=== PATIENT | male | born 1975 | race Caucasian/White ===

== ENCOUNTER 2017-01-27 17:52 | Emergency (ER) | payer MEDICAID ==
[~2017-01-27] VITALS: Ht 177.8 cm; Wt 72.8 kg
[2017-01-27 18:06] VITALS: BP 112/71
[2017-01-27] MEDS ORDERED: LIDOCAINE 1%, 20ML SQ ONE (18:30)
[2017-01-27] MEDS ORDERED: SODIUM CHLORIDE 0.9% 1,000ML IVBOLUS ONE (19:00)
[2017-01-27] MEDS ORDERED: LIDOCAINE 1%, 20ML INFIL ONE (19:00)
[2017-01-27] MEDS ORDERED: HYDROmorphone 1 MG/ML, 1ML IVPush PRN (19:00)
[2017-01-27] MEDS ORDERED: ONDANSETRON 2MG/ML, 2ML IVPush ONE (19:00)
[2017-01-27] MEDS ORDERED: SODIUM CHLORIDE FLUSH 10ML SYR IVF ONE (19:00)
[2017-01-27 19:11] LABS: HEMATOCRIT 50.2 % (39.2-51.8); HEMOGLOBIN 16.8 g/dL (13.7-18.0); WHITE BLOOD COUNT 15.6 x10^3/uL (3.4-10)
[2017-01-27 19:23] LABS: ASPARTATE AMINO TRANSFERASE 21 U/L (15-37); BLOOD UREA NITROGEN 17 mg/dL (7-18)
== END 2017-01-27 20:17 | disposition left against medical advice (07) ==
LOC: ED 20:10
DX: S01.411A Laceration without foreign body of right cheek and temporomandibular area, initial encounter (principal); S20.212A Contusion of left front wall of thorax, initial encounter; R10.12 Left upper quadrant pain; F17.200 Nicotine dependence, unspecified, uncomplicated; Y04.0XXA Assault by unarmed brawl or fight, initial encounter; Y93.89 Activity, other specified; Y92.89 Other specified places as the place of occurrence of the external cause; Y99.8 Other external cause status
CPT/HCPCS: 36415; 71101; 80053; 85025; 85610; 85730; 99285; J3490

== ENCOUNTER 2017-02-21 17:40 | Emergency (ER) | payer MEDICAID ==
[~2017-02-21] VITALS: Ht 177.8 cm; Wt 71.4 kg
[2017-02-21 17:48] VITALS: BP 100/63
[2017-02-21] MEDS ORDERED: KETOROLAC 30 MG/1 ML IM ONE (18:30)
[2017-02-21] MEDS ORDERED: ACETAMINOPHEN 500 MG TABLET PO ONE (18:30)
[2017-02-21] MEDS ORDERED: KETOROLAC 30 MG/1 ML ONE (18:45)
[2017-02-21] MEDS ORDERED: ACETAMINOPHEN 500 MG TABLET ONE (18:45)
[2017-02-21 18:55] LABS: RAPID INFLUENZA A Negative (Negative); RAPID INFLUENZA B Negative (Negative)
[2017-02-21] MEDS ORDERED: ONDANSETRON ODT 4 MG ONE (19:59)
[2017-02-21] MEDS ORDERED: ONDANSETRON ODT 4 MG PO ONE (20:00)
== END 2017-02-21 20:28 | disposition home or self-care (01) ==
LOC: ED 20:22
DX: B34.9 Viral infection, unspecified (principal); F17.200 Nicotine dependence, unspecified, uncomplicated
CPT/HCPCS: 87400; 96372; 99284; J1885; Q0162

== ENCOUNTER 2017-11-03 01:43 | Emergency (ER) | payer MEDICAID ==
[~2017-11-03] VITALS: Ht 177.8 cm; Wt 7.9 kg
[~2017-11-03 01:43] MED LIST: OMEP20TA62 PO
[2017-11-03 01:48] VITALS: BP 120/72
== END 2017-11-03 03:28 | disposition home or self-care (01) ==
LOC: ED 03:00
DX: S39.012A Strain of muscle, fascia and tendon of lower back, initial encounter (principal); V23.4XXA Motorcycle driver injured in collision with car, pick-up truck or van in traffic accident, initial encounter; Y93.89 Activity, other specified; Y99.8 Other external cause status; Y92.410 Unspecified street and highway as the place of occurrence of the external cause
CPT/HCPCS: 72110; 99284